=== PATIENT | female | born 1970 | race Caucasian/White ===

== ENCOUNTER → 2020-11-07 13:33 | Outpatient (CLI) | payer OTHER, SELFPAY ==
--- NOTE | ~2020-11-07 | MM_ITS ---
EXAMINATION: MM screening jatin BI w carissa HISTORY: Screening mammogram TECHNIQUE: Craniocaudal and mediolateral oblique 3-D tomosynthesis images were obtained and synthetic 2-D images were generated. CAD analysis was submitted and interpreted. COMPARISON: 07/20/2018, 04/07/2016 bilateral digital screening mammogram examinations BREAST PARENCHYMAL COMPOSITION: There are scattered areas of fibroglandular density. FINDINGS: There are bilateral benign calcifications. There is no evidence of suspicious mass, calcifi cation, or architectural distortion to suggest malignancy in either breast. There has been no suspici ous interval change. IMPRESSION: 1. No mammographic evidence of malignancy. 2. Recommend routine screening mammography in one year. BI-RADS Category 2: Benign finding(s). Reviewed, dictated and finalized at location A.
== END ==
PROVIDERS: Visit Provider Obstetrics & Gynecology
DX: Z12.31 Encounter for screening mammogram for malignant neoplasm of breast (principal)
CPT/HCPCS: 77063; 77067

== ENCOUNTER 2023-03-18 08:55 | Outpatient (CLI) | payer OTHER, SELFPAY ==
--- NOTE | ~2023-03-18 | MM_ITS ---
EXAMINATION: MM screening jatin BI w carissa HISTORY: Screening TECHNIQUE: Craniocaudal and mediolateral oblique 3-D tomosynthesis images were obtained and synthetic 2-D images were generated. CAD analysis was submitted and interpreted. COMPARISON: Comparison to multiple prior studies sequentially, with oldest reviewed study dated 11/07/2020. BREAST PARENCHYMAL COMPOSITION: Breast composed of scattered areas of fibroglandular density FINDINGS: The right breast is stable without evidence for malignancy. There is a developing irregular shaped mass in the upper outer quadrant of the left breast. There are developing regional calcificat ions in the upper outer quadrant of the left breast. IMPRESSION: 1. Developing regional calcifications and an irregular shaped mass centered in the upper outer quadra nt of the left breast. 2. Additional mammographic views and possible breast ultrasound are recommended. BI-RADS Category 0: Incomplete: Needs additional imaging evaluation. Reviewed, dictated and finalized at location A. IMPRESSION: 1. Developing regional calcifications and an irregular shaped mass centered in the upper outer quadrant of the left breast. 2. Additional mammographic views and possible breast ultrasound are recommended . BI-RADS Category 0: Incomplete: Needs additional imaging evaluation.
== END 2023-03-18 08:56 | disposition home or self-care (01) ==
LOC: ANHIMG 08:59
PROVIDERS: Visit Provider Obstetrics & Gynecology
DX: Z12.31 Encounter for screening mammogram for malignant neoplasm of breast (principal); N63.21 Unspecified lump in the left breast, upper outer quadrant
CPT/HCPCS: 77063; 77067

== ENCOUNTER 2023-04-08 11:55 | Outpatient (CLI) | payer OTHER, SELFPAY ==
--- NOTE | ~2023-04-08 | MMUS_ITS ---
EXAMINATION: MM diagnostic jatin LT w carissa, US breast LT limited HISTORY: Follow-up abnormal left breast mass and calcifications TECHNIQUE: Additional 3-D tomosynthesis images of the left breast were performed and synthetic 2-D im ages were generated. CAD analysis was submitted and interpreted. High resolution Limited left breast ultrasound was performed. COMPARISON: Comparison to multiple prior studies sequentially, with oldest reviewed study dated 11/2015. BREAST PARENCHYMAL COMPOSITION: Breast composed of scattered areas of fibroglandular density FINDINGS: MAMMOGRAPHIC FINDINGS: There are developing extensive regional calcifications involving the upper outer quadrant of the left breast. There are developing irregular shaped clustered masses in the upper outer quadrant, middle t hird. ULTRASOUND: Limited left breast ultrasound: At 1:00, 10 cm from the nipple, there are 2 hypoechoic masses, larges t measuring 7 mm which contains internal echogenic foci consistent with calcifications. No significan t posterior features or internal vascularity in either mass. At 1:00, 9 cm from the nipple, there are 2 separate masses both containing internal echogenic foci, consistent with calcifications, largest m easuring 1 cm. No definite mass identified corresponding to the dominant mass seen on mammography. IMPRESSION: 1. Complex irregular shaped left breast mass in the upper outer quadrant, middle third with coarse as sociated pleomorphic calcifications. There are extensive regional calcifications in the upper outer q uadrant of the left breast. 2. Stereotactic left breast biopsy recommended for dominant left breast mass and calcifications. BI-RADS category 5, highly suggestive of malignancy. Reviewed, dictated and finalized at location A. ER SPLICER IMPRESSION: 1. Complex irregular shaped left breast mass in the upper outer quadrant, middl e third with coarse associated pleomorphic calcifications. There are extensive regional calcifications in the upper outer quadrant of the left breast. 2. Stereotactic left breast biopsy recommended for dominant left breast mass an d calcifications. BI-RADS category 5, highly suggestive of malignancy.
== END 2023-04-08 11:56 | disposition home or self-care (01) ==
PROVIDERS: PCP Nurse Practitioner Family; Visit Provider Obstetrics & Gynecology
DX: N63.21 Unspecified lump in the left breast, upper outer quadrant (principal)
CPT/HCPCS: 76642; 77061; 77065; G0279